=== PATIENT | female | born 1990 | race Caucasian/White ===

== ENCOUNTER 2018-06-20 20:01 | Emergency (ER) | payer OTHER ==
--- NOTE | 2018-06-20 21:04 | RADIOLOGY REPORT (SQ) ---
EXAM DESCRIPTION: KNEE RIGHT 4 VIEWS COMPLETED DATE/TIME: 06/20/2018 8:49 pm REASON FOR STUDY: knee pain COMPARISON: None. NUMBER OF VIEWS: Four views. TECHNIQUE: AP, lateral, and both oblique radiographic images acquired of the right knee. LIMITATIONS: None. FINDINGS: MINERALIZATION: Normal. BONES: No acute fracture or dislocation. No worrisome bone lesions. No significant osteophytes. JOINT: No effusion. No chondrocalcinosis. OTHER: No other significant finding. IMPRESSION: NEGATIVE STUDY OF THE RIGHT KNEE. NO EXPLANATION FOR PAIN. TECHNICAL DOCUMENTATION: JOB ID: [id number] [employer]- All Rights Reserved Reading location - IP/workstation name: [email or web address]
[2018-06-20] MEDS ORDERED: IBUPROFEN 800 MG TABLET PO ONE (22:14)
--- NOTE | 2018-06-20 22:25 | ER Document Report ---
HPI - HPI Patient complains to provider of: Right knee pain Onset: This evening Onset/Duration: Sudden Quality of pain: Achy Pain Level: 3 Context: Patient states she was walking at work and slipped twisting her right knee. Patient complains of continued right knee pain with weightbearing. Exacerbated by: Standing, Movement, Walking Relieved by: Denies Similar symptoms previously: No Recently seen / treated by doctor: No - ROS ROS below otherwise negative: Yes Systems Reviewed and Negative: Yes All other systems reviewed and negative - CONSTITUTIONAL Constitutional: DENIES: Fever, Chills - MUSCULOSKELETAL Musculoskeletal: REPORTS: Extremity pain - right knee - DERM Skin Color: Normal Skin Problems: None Past Medical History - General Information source: Patient - Social History Smoking Status: Never Smoker Chew tobacco use (# tins/day): No Frequency of alcohol use: None Drug Abuse: None Occupation: [employer] Family History: Reviewed & Not Pertinent Patient has suicidal ideation: No Patient has homicidal ideation: No - Medical History Medical History: Negative Renal/ Medical History: Denies: Hx Peritoneal Dialysis Past Surgical History: Reports: Hx Appendectomy Vertical Provider Document - CONSTITUTIONAL Agree With Documented VS: Yes Exam Limitations: No Limitations General Appearance: WD/WN, No Apparent Distress - HEENT HEENT: Atraumatic, Normocephalic - NECK Neck: Normal Inspection - RESPIRATORY Respiratory: No Respiratory Distress - CARDIOVASCULAR Pulses: Normal: Posterior tibial, Dorsalis pedis - MUSCULOSKELETAL/EXTREMETIES Musculoskeletal/Extremeties: MAEW, FROM, Tender - right knee pain to medial compartment, No Edema. negative: Eccymosis - NEURO Level of Consciousness: Awake, Alert, Appropriate Motor/Sensory: No Motor Deficit - DERM Integumentary: Warm, Dry, No Rash Course - Vital Signs Vital signs: Temp Pulse Resp BP Pulse Ox 98.7 F 80 16 108/70 100 06/20/18 20:27 06/20/18 20:27 06/20/18 20:27 06/20/18 20:27 06/20/18 20:27 - Diagnostic Test Radiology reviewed: Reports reviewed Procedures - Immobilization Right Knee Pre-Proc Neuro Vasc Exam: Normal Immobilizer type: Knee immobilizer Performed by: PCT Post-Proc Neuro Vasc Exam: Normal Alignment checked and good: Yes Discharge - Discharge Clinical Impression: Right knee sprain Qualifiers: Encounter type: initial encounter Involved ligament of knee: unspecified ligament Qualified Code(s): S83.91XA - Sprain of unspecified site of right knee , initial encounter Condition: Stable Disposition: HOME, SELF-CARE Instructions: Use of Crutches ([facility]), Ice & Elevation ([facility]), Knee Immobilizing Splint ([facility]), Sprained Knee ([facility]) Additional Instructions: Return immediately for any new or worsening symptoms Followup with your primary care provider, call tomorrow to make a followup appointment Weightbearing as tolerated Follow-up with orthopedics for any persistent pain or problems Prescriptions: Naproxen [Naprosyn 250 Nmg Tablet] 1 tab PO BID #14 tablet Forms: Return to Work Referrals: CORONA DENTON MD [CONSULTING STAFF] - Follow up as needed [facility] [Provider Group] - Follow up as needed
[2018-06-20 22:59] VITALS: BP 106/77
== END 2018-06-20 23:00 | disposition home or self-care (01) ==
LOC: ER 20:01
DX: S83.91XA Sprain of unspecified site of right knee, initial encounter (principal); M25.561 Pain in right knee; X50.0XXA Overexertion from strenuous movement or load, initial encounter
CPT/HCPCS: 99283; 73564; L1830

== ENCOUNTER → 2019-10-07 | Day surgery (SDC) | payer BC ==
[~2019-10-07] MED LIST: LIDOCAINE 1%/EPINEPHRINE INJ 20 ML VIAL ONE
--- NOTE | 2019-10-07 11:29 | Discharge Summary ---
Discharge Summary (SDC) - Discharge Final Diagnosis: Microcalcifications, 2 clusters, right breast status post stereotactic biopsy x2 Date of Surgery: 10/07/19 Discharge Date: 10/07/19 Condition: Good Treatment or Instructions: Compressive bra; allow Steri-Strips to fall off; take Tylenol Motrin PRN pain; follow-up with Dr. Loving in 1 to 2 weeks; we will call patient with results of pathology report. Referrals: GALA GUTIÉRREZ MD [Primary Care Provider] - Discharge Diet: As Tolerated Discharge Activity: Activity As Tolerated Home Care Assistance: None Needed Report the Following to Your Physician Immediately: Shortness of Breath, Increase in Pain, Fever over 101 Degrees
--- NOTE | 2019-10-07 11:35 | Operative Report ---
Operative Report DATE OF SURGERY: 10/07/19 PREOPERATIVE DIAGNOSIS: 1. 2 areas of microcalcifications medial inferior aspe ct right breast. 2. History of breast implants POSTOPERATIVE DIAGNOSIS: Same OPERATION: 1. Stereotactically directed incision mammotomy and core biopsies right breast microcalcifications, 2 areas, 2 separate incisions. 2. Interpretation of multiple intraoperative mammograms. 3. Interpretation of specimen radiograph x2 SURGEON: GALA DALTON ANESTHESIA: Local TISSUE REMOVED OR ALTERED: Multiple cores right breast in 2 separate containers sent to pathology COMPLICATIONS: None ESTIMATED BLOOD LOSS: Scant INTRAOPERATIVE FINDINGS: See below PROCEDURE: Patient was taken in the waiting area to the procedure room in the radiology department where the right breast was placed to compression, with the feeling implant displaced away from the target field. Review of the mammograms revealed 2 areas of microcalcifications in the inner lower quadrant of the right breast. We elected to proceed with biopsy of both of these areas through 2 separate incisions. The patient's right breast was placed into compression on the stereotactic table. We approached the more peripheral microcalcifications in the more inferior aspect of the right breast, hereafter labeled target A. Stereotactic views were obtained of target A, surface of the left breast prepped with Betadine, and the status 1% plain lidocaine. Mammotome advanced to the appropriate depth, and pre-and post fire films showed good alignment between the microcalcifications and the tip of the mammotome. We now performed vacuum- assisted biopsy in a circumferential fashion to the target microcalcifications. Substantial specimens were placed on a Mignon dish, and photographed with the specimen radiograph machine in the procedure room.. Demonstrated a collection of microcalcifications. We felt the procedure was successful. A clip marker was deployed into the cavity at site A. Post clip deployment films showed retention of clip in the right breast. The exact same procedure was performed on target B which was the second cluster microcalcifications in the inner lower quadrant of the right breast, closer to the nipple. Adequate specimens were accessed, specimens imaged with the specimen radiograph and demonstrated retention of microcalcifications in several of the specimens. The procedure was deemed successful. Again a different clip marker was installed into the cavity, and device removed in the patient's breast. The breast was placed in the compression. The patient tolerated procedure well. There is no hematoma. Patient be sent for completion mammography post procedure in the radiology suite. Discharge instructions provided. She will follow-up with Dr. Dalton results in 1 to 2 weeks at [facility]; we will call her with the results of the path report
--- NOTE | 2019-10-10 11:30 | RADIOLOGY REPORT (SQ) ---
EXAM DESCRIPTION: RIGHT DIG DX MAMMO NO CHG; STEREO BREAST BX COMPLETED DATE/TIME: 10/09/2019 12:37 pm; 10/07/2019 2:38 pm; 10/07/2019 2:37 pm REASON FOR STUDY: POST STEREO; R92.0 MAMMOGRAPHIC MICROCALCIFICATION FOUND ON DIAGNOSTIC IMAGING OF BREAST; MAMMOGRAPHIC MICROCALCIFICATION FOUND ON DX IMAGING OF BRST R92.0 MAMMOGRAPHIC MICROCALCIFIC ATION FOUND ON DX IMAGING OF COMPARISON: Mammograms 07/31/2019 LIMITATIONS: None. PROCEDURE: Vacuum-assisted stereotactic-guided biopsy of the lesion in the right breast targeted and performed by Dr. Dalton, the operating surgeon. Procedure and post-procedure imaging interpreted by a radiologist. Using stereotactic guidance, a vacuum-assisted core biopsy of 2 clusters of calcifications was perfo rmed. A pellet and barrel clip were deployed at the biopsy sites. Post procedure image reveals the c lip at the biopsy site. TECHNIQUE: Images from the stereotactic unit acquired during the procedure. Specimen radiography performed. Yes. Post- procedure image acquired post-clip placement. Yes. Post procedure 2 view mammograms performed in the mammography suite for clip placement. Yes. FINDINGS: SPECIMEN RADIOGRAPH:Calcifications identified in each specimen radiograph at the time of a cquisition. POST PROCEDURE MAMMOGRAMS FOR MARKER PLACEMENT: Yes. POST PROCEDURE MAMMOGRAM: Clip is in expected location. No significant hematoma. PATHOLOGY: No atypia or malignancy CONCORDANT: Yes. The operating surgeon was notified of the findings. IMPRESSION: SUCCESSFUL STEREOTACTIC-GUIDED BIOPSY OF LESION IN THE RIGHT BREAST. BI-RADS 2, benign findings BIOPSY RESULTS ARE CONCORDANT WITH IMAGING FINDINGS. FOLLOW-UP: PER SURGEON TECHNICAL DOCUMENTATION: JOB ID: [id number] [employer]- All Rights Reserved Reading location - IP/workstation name: [email or web address]
== END ==
LOC: RAD 09:56
PROVIDERS: ATTEND Surgery
DX: N60.11 Diffuse cystic mastopathy of right breast (principal); D24.1 Benign neoplasm of right breast; R92.0 Mammographic microcalcification found on diagnostic imaging of breast
CPT/HCPCS: 88305 ×2; 88342; 19081; J3490

== ENCOUNTER → 2019-12-18 | Outpatient (CLI) | payer BC ==
--- NOTE | 2019-12-18 13:29 | RADIOLOGY REPORT (SQ) ---
EXAM DESCRIPTION: CHEST PA/LATERAL COMPLETED DATE/TIME: 12/18/2019 1:06 pm REASON FOR STUDY: COUGH COMPARISON: None. EXAM PARAMETERS: NUMBER OF VIEWS: two views TECHNIQUE: Digital Frontal and Lateral radiographic views of the chest acquired. RADIATION DOSE: NA LIMITATIONS: none FINDINGS: LUNGS AND PLEURA: No opacities, masses or pneumothorax. No pleural effusion. MEDIASTINUM AND HILAR STRUCTURES: No masses or contour abnormalities. HEART AND VASCULAR STRUCTURES: Heart normal size. No evidence for failure. BONES: No acute findings. HARDWARE: None in the chest. OTHER: No other significant finding. IMPRESSION: NO SIGNIFICANT RADIOGRAPHIC FINDING IN THE CHEST. TECHNICAL DOCUMENTATION: JOB ID: [id number] [employer]- All Rights Reserved Reading location - IP/workstation name: [email or web address]
== END ==
LOC: OD 12:47
PROVIDERS: ATTEND Family Medicine
DX: R05 Cough (principal)
CPT/HCPCS: 71046